=== PATIENT | female | born 1955 | race Caucasian/White ===

== ENCOUNTER 2024-10-25 10:36 | Emergency (ER) | payer MEDICARE, OTHER, SELFPAY ==
[2024-10-25 10:43] VITALS: BP 153/78
--- NOTE | 2024-10-25 11:22 | ED.GENMED ---
History of Present Illness
General
Chief Complaint: Fall
Time Seen by Provider: 10/25/24 11:21
History of Present Illness
History of Present Illness:
TIME OF INITIAL ENCOUNTER: 11:25 AM
HPI: The patient came here after a fall down 6 steps as she was carrying a vacuum on the steps. She does have a laceration to the scalp. There was a significant amount of blood that she noticed on the concrete floor. She has only a mild headache.
She denies any other injury.
EXAM:
GENERAL: Well appearing in no distress
CERVICAL SPINE: No midline c-spine tenderness with excellent AROM
HEAD: There is a 3 cm laceration just left of posterior midline of the scalp
CHEST: No chest wall tenderness, normal heart sounds
LUNGS: Equal lung sounds, no respiratory distress
ABDOMEN: No abdominal tenderness, no peritoneal signs
EXTREMITIES: Normal active range of motion, no tenderness
NEURO: Excellent strength all extremities, appropriate mental status, normal speech/language
NUMBER AND COMPLEXITY OF PROBLEMS ADDRESSED AT THE ENCOUNTER
� Chronic conditions affecting care: GERD, anxiety/depression, has had gastric bypass
� Acute Exacerbation and/or Progression of Chronic Illness: This is an acute problem
� Differential Diagnosis includes: Minor head injury, scalp laceration, intracranial hemorrhage
AMOUNT AND/OR COMPLEXITY OF DATA TO BE REVIEWED AND ANALYZED
� I performed an independent evaluation of and my interpretation is:
EKG:
CT: CAT scan of the brain shows no acute abnormality
X-rays:
Laboratory Studies:
Other:
� Review of other/old records: No old records available for review
� Clinical information was obtained by an independent historian: I spoke to brother at bedside
� Prescriptions/Medications Considered but not given: Will hold off on NSAIDs as patient has history of gastric bypass
� Further testing considered but not performed:
RISK OF COMPLICATIONS AND/OR MORBIDITY OR MORTALITY OF PATIENT MANAGEMENT
� Social determinants of health affecting care: The patient lives in [place] and just visiting to help care for her [id number], has a sister who is a nurse locally who can take out the stitches
� Discussion with other providers:
� Escalation of care including admission/observation vs risk of discharge considered: Given the patient's age with rather significant head trauma, CT brain was obtained.
ANY OTHER UPDATES:
Phy Exam
Physical Exam
Physical Exam:
See HPI
Course
Orders/Labs/Results
Orders:
Orders
10/25/24 11:28
CT Head W/o Iv Contrast Urgent
Comment:
Reason For Exam: head trauma fall down 6 steps onto concrete
10/25/24 12:39
Tetanus/Diphth/Acelpertussis [Adacel] 0.5 ml IM .ONCE ONE
Vital Signs
Initial and Last Documented VS:
Initial Vital Signs
Temp Pulse Resp BP Pulse Ox
36.8 C 61 18 153/78 98
10/25/24 10:43 10/25/24 10:43 10/25/24 10:43 10/25/24 10:43 10/25/24 10:43
Last Documented Vital Signs
Temp Pulse Resp BP Pulse Ox
36.8 C 60 18 137/81 99
10/25/24 10:43 10/25/24 12:57 10/25/24 12:57 10/25/24 12:57 10/25/24 12:57
Procedures
Laceration Closure
Left Posterior Scalp:
Status of Wound: clean
Size of Wound in cm: 3
Description of Wound Edges: sharp
Preparation: cleaned with saline
Anesthesia: 1% Lidocaine with epi
Revision/Debridement: routine- no revision
Wound exploration: explored to base- no FB
Type of Closure: single layer closure
Skin Closure Material: 3-0 prolene
Number of sutures: 3
*Critical Care Note
Total Time (30-74mins, 75-104mins- exclusive of procedures): Not Applicable
ED Attending Note
-
Portions of this chart may have been created with voice recognition software.� Occasional wrong word or��sound alike� substitutions may have occurred due to the inherent limitations of voice recognition software.
Discharge Plan
Departure
Patient Disposition: Home (Routine Discharge)
Date of Disposition: 10/25/24
Time of Disposition: 12:40
Patient with high blood pressure during this ER visit?: Yes
Discharge Problem:
Laceration of scalp, Fall down steps
Instructions: Head Injury in Adults (DC), Laceration Repair With Stitches (DC)
Referrals:
PRIVATE,PHYSICIAN [Family Provider] -
Activity Restrictions/Additional Instructions:
Have stitches removed by your sister (nurse), in approximately 7 days. Return here if worse. CAT scan of the brain shows no internal bleeding.
Interventions
Interventions:
*Risk Screen - Suicide Last Done: 10/25/24 10:43
*General Assessment Last Done: 10/25/24 10:43
*Neglect/Abuse Screening Last Done: 10/25/24 10:43
*Nursing Disposition Last Done: 10/25/24 12:59
ED-Musculoskeletal Assessment Last Done: 10/25/24 12:09
ED- Neurological Assessment Last Done: 10/25/24 12:09
ED-Skin Assessment Last Done: 10/25/24 12:09
Discharge Date and Time
Discharge Date/Time: 10/25/24 12:59
Print Language: HEBREW
[2024-10-25 12:09] VITALS: BMI 35.4
[2024-10-25] MEDS: ADACEL 0.5 ML IM (12:49)
[2024-10-25 12:57] VITALS: BP 137/81
== END 2024-10-25 12:59 | disposition home or self-care (01) ==
LOC: EMR 10:36
PROVIDERS: EMERGENCY PHYSICIAN Emergency Medicine
DX: S01.01XA Laceration without foreign body of scalp, initial encounter (principal); W10.9XXA Fall (on) (from) unspecified stairs and steps, initial encounter; Z23 Encounter for immunization
CPT/HCPCS: 99284; 12002; 90471; 70450; 90715